=== PATIENT | male | born 1950 | race Caucasian/White ===

== ENCOUNTER → 2018-12-31 | Outpatient (CLI) | payer OTHER, MEDICARE ==
[~2018-12-31] MED LIST: REGADENOSON 0.4 MG/5 ML SYRINGE ONE
== END | disposition home or self-care (01) ==
LOC: CFH 06:38
PROVIDERS: ATTEND Internal Medicine Cardiovascular Disease
DX: I35.8 Other nonrheumatic aortic valve disorders (principal); I10 Essential (primary) hypertension; E78.5 Hyperlipidemia, unspecified; E11.9 Type 2 diabetes mellitus without complications
CPT/HCPCS: 78452; 93017; 93306; A9502; J2785

== ENCOUNTER 2019-09-23 10:01 | Outpatient (CLI) | payer OTHER, MEDICARE | END 2019-09-23 23:59 | disposition home or self-care (01) | LOC: RAD 10:01 | PROVIDERS: ATTEND Family Medicine | DX: E04.1 Nontoxic single thyroid nodule (principal); E11.65 Type 2 diabetes mellitus with hyperglycemia; M10.9 Gout, unspecified; N40.0 Benign prostatic hyperplasia without lower urinary tract symptoms | CPT/HCPCS: 10005; 88173 ==

== ENCOUNTER 2020-06-05 09:34 | Inpatient (IN) | payer OTHER, MEDICARE ==
[~2020-06-05] VITALS: Ht 175.3 cm; Wt 80.0 kg
--- NOTE | 2020-06-05 09:36 | NUR ---
PT BIB EMS FROM HOME. PER EMS RPT PTS RPTS THAT PT HAS BEEN "A LITTLE SLOW AND DISORIENTED FOR FEW DAYS" +N/V/D TODAY. FSBS = 456 ROUGHER HELPER, EMS EST PIV AND GAVE 1LITER NS ROUGHER HELPER. PT PRESENTS AWAKE, ALERT AND COOPERATIVE, FOLLOWS COMMANDS BUT SEEMS A LITTLE SLOW IN RESPONSES. NOT ORIENTED TO YEAR, MONTH, AND IS UNSURE OF MEDICATIONS. VSS NOTED. DR ARCHULETA AT BEDSIDE, ASSESSMENT REV. AND QUESTIONS ANSWERED. ORDERS REC'D. ALL MONITORS PLACE. IVF INFUSING W/O DIFFICULTY
[2020-06-05] MEDS ORDERED: SODIUM CHLORIDE 0.9% 1,000ML IVBOLUS ONE ×2 (10:00→11:30)
[2020-06-05] MEDS ORDERED: ONDANSETRON 2MG/ML, 2ML IVPush ONE (10:00)
[2020-06-05] MEDS ORDERED: IRBE300T8 PO (10:24)
[2020-06-05] MEDS ORDERED: TADA5TAB2 PO (10:24)
[2020-06-05] MEDS ORDERED: GLIM1TAB7 PO (10:24)
[2020-06-05] MEDS ORDERED: ALLO300T PO (10:24)
[2020-06-05] MEDS ORDERED: METF500T17 PO (10:24)
[2020-06-05] MEDS ORDERED: METO-93 PO (10:24)
[2020-06-05] MEDS ORDERED: FENO145T32 PO (10:24)
[2020-06-05] MEDS ORDERED: AMLO-211 PO (10:24)
[2020-06-05 10:26] LABS: PH, VENOUS 7.194 pH (7.320-7.420)
[2020-06-05 10:27] LABS: FIO2 RA %
[2020-06-05 10:32] LABS: BASOPHILS % (AUTO) 1 % (0-1); EOSINOPHILS % (AUTO) 0 % (1-7); LYMPHOCYTES % (AUTO) 13 % (22-44); MEAN CORPUSCULAR HEMOGLOBIN 30.2 pg (27.5-34.5); MEAN CORPUSCULAR HGB CONC 33.1 g/dL (33.2-36.2); MEAN PLATELET VOLUME 8.4 fL (7.4-10.4); MONOCYTES % (AUTO) 6 % (2-9); NEUTROPHILS % (AUTO) 80 % (42-75); PLATELET COUNT 204 x10^3/uL (130-400); RED BLOOD COUNT 4.84 x10^6/uL (4.38-5.82); RED CELL DISTRIBUTION WIDTH 13.6 % (9.4-14.8)
[2020-06-05 10:35] LABS: MD NO
[2020-06-05 10:41] LABS: ALKALINE PHOSPHATASE 96 U/L (45-117); BILIRUBIN,TOTAL 0.7 mg/dL (0.2-1.0); CREATININE 2.21 mg/dL (0.7-1.3); TOTAL PROTEIN 7.6 g/dL (6.4-8.2)
[2020-06-05 10:43] LABS: MICROSCOPIC INDICATED
[2020-06-05] MEDS ORDERED: ONDANSETRON 2MG/ML, 2ML ONE (10:47)
[2020-06-05 10:48] LABS: ALANINE AMINOTRANSFERASE 26 U/L (12-78); ALBUMIN 3.4 g/dL (3.4-5.0); ANION GAP 18 mmol/L (5-15); CALCIUM 9.1 mg/dL (8.5-10.1); CHLORIDE 114 mmol/L (98-107)
--- NOTE | 2020-06-05 11:02 | NUR ---
LAB RESULTS INCLUDING GLUCOSE DISCUSSED WITH DR. ARCHULETA
--- NOTE | 2020-06-05 11:05 | NUR ---
PLAN OF CARE DISCUSSED WITH DR ARCHULETA AND NEW ORDERS REC'D
[2020-06-05] MEDS ORDERED: CEFTRIAXONE PMX 1GM/50ML 50 ML IV ONE (11:30)
[2020-06-05] MEDS ORDERED: AZITHROMYCIN 500 MG in SODIUM CHLORIDE 0.9% 250 ML IV ONE (11:30)
[2020-06-05 11:38] LABS: ACETONE, SERUM Large (80mg/dL) (Negative)
--- NOTE | 2020-06-05 11:44 | NUR ---
PTS AT BEDSIDE, PT ASSESSMENT, LAB AND XRAY RESULTS, POC FOR ADMIT DISCUSSED AND QUESTINS ANSWERED. PT IS COVID R/O, VISITING RESTRICTIONS DISCUSSED. SHE AND HER LIVE IN AN AREA WHERE THEY HAVE NO PHONE COVERAGE. SHE CAN BE REACHED BY TESTING. SHE LEFT THE PTS CELL PHONE SO THAT HER , DOCTORS, AND NURSES CAN TEXT HER. PH `[phone]
[2020-06-05] MEDS ORDERED: CEFTRIAXONE PMX 1GM/50ML 50 ML ONE (11:55)
[2020-06-05] MEDS ORDERED: ACETAMINOPHEN 325 MG TABLET PO PRN (12:00)
[2020-06-05] MEDS: AZITHROMYCIN 500 MG in SODIUM CHLORIDE 0.9% 250 ML IV SCH (12:00)
[2020-06-05] MEDS ORDERED: ONDANSETRON 2MG/ML, 2ML IV PRN (12:00)
[2020-06-05] MEDS ORDERED: POLYETHYLENE GLYCOL 17 GM PACKET PO PRN (12:00)
[2020-06-05] MEDS ORDERED: BISACODYL 10 MG SUPP PR PRN (12:00)
[2020-06-05] MEDS: CEFTRIAXONE PMX 1GM/50ML 50 ML IV SCH (12:00)
[2020-06-05] MEDS ORDERED: LABETALOL 5MG/ML, 20ML IVPush PRN (12:00)
[2020-06-05] MEDS ORDERED: OXYcodone IR 5MG TABLET PO PRN (12:00)
[2020-06-05] MEDS ORDERED: SODIUM CHLORIDE 0.9% 1,000 ML IV SCH (12:00)
[2020-06-05] MEDS ORDERED: DOCUSATE 100 MG CAPSULE PO PRN (12:00)
[2020-06-05] MEDS ORDERED: ENOXAPARIN 40 MG/0.4 ML ONE (12:24)
[2020-06-05] MEDS ORDERED: THIAMINE 100MG TABLET ONE (12:25)
[2020-06-05] MEDS ORDERED: CHOLECALCIFEROL 5,000u TAB ONE (12:25)
[2020-06-05] MEDS ORDERED: ZINC SULFATE 220 MG CAPSULE ONE (12:25)
[2020-06-05] MEDS: ENOXAPARIN 40 MG/0.4 ML SQ SCH (12:29)
[2020-06-05] MEDS: CHOLECALCIFEROL 5,000u TAB PO SCH (12:30)
[2020-06-05] MEDS: THIAMINE 100MG TABLET PO SCH (12:30)
[2020-06-05] MEDS: ZINC SULFATE 220 MG CAPSULE PO SCH (12:30)
[2020-06-05 12:35] LABS: ALANINE AMINOTRANSFERASE 22 U/L (12-78); ALBUMIN 3.1 g/dL (3.4-5.0); CALCIUM 8.7 mg/dL (8.5-10.1)
[2020-06-05 12:46] LABS: ALKALINE PHOSPHATASE 88 U/L (45-117); BILIRUBIN,TOTAL 0.6 mg/dL (0.2-1.0); TOTAL PROTEIN 7.1 g/dL (6.4-8.2)
[2020-06-05 12:47] LABS: ANION GAP 18 mmol/L (5-15); CHLORIDE 117 mmol/L (98-107)
[2020-06-05] MEDS: REGULAR INSULIN 100 UNITS in SODIUM CHLORIDE 0.9% 99 ML IV PRN ×2 (13:29→16:35)
--- NOTE | 2020-06-05 13:31 | NUR ---
INSULIN GTT AND MAINTENANCE FLUIDS STARTED. PT CONTINUE TO HAVE FREQUENT DRY COUGHING, DENIES PAIN, VSS. CALL LIGHT W/I REACH. MEAL TRAY ORDERED.
--- NOTE | 2020-06-05 14:30 | NUR ---
SPOKE WITH PTS AND UPDATED HER REGARDING POC. QUESTIONS ANSWERED.
--- NOTE | 2020-06-05 14:38 | NUR ---
PT GOT OOB UNASSISTED TO USE COMMODE. BREAK RN CAME TO ROOM AND HELPED PT GET ONTO THE COMMODE. HE HAD PULLED OUT ONE OF HIS PIV'S. TIP FOUND INTACT ON THE FLOOR. PT +DIARRHEA. RTD TO BED WITH RN STANDBY ASSIST. IVF RESTARTED THROUGH THE REMAINING IV AND INFUSING W/O DIFFICULTY. DR HARRIS AT BEDSIDE, PT ASSESSMENT, WORSENING CONFUSION DISCUSSED.
[2020-06-05 15:14] LABS: CLOSTRIDIUM DIFFICILE ANTIGEN NEGATIVE; CLOSTRIDIUM DIFFICILE TOXIN NEGATIVE (Negative)
--- NOTE | 2020-06-05 15:37 | NUR ---
PT CONFUSION AND MULTIPLE ATTEMPTS TO GET OUT OF BED DISCUSSED WITH LONG LINE TEAMSTERTayo DEAN REQUESTED.
[2020-06-05 16:02] LABS: ANION GAP 14 mmol/L (5-15); CALCIUM 8.5 mg/dL (8.5-10.1); CHLORIDE 120 mmol/L (98-107); CREATININE 1.87 mg/dL (0.7-1.3)
[2020-06-05 16:16] VITALS: BP 142/69
[2020-06-05] MEDS: ASCORBIC ACID 500 MG TABLET PO SCH ×2 (17:00→20:22)
--- NOTE | 2020-06-05 17:03 | NUR ---
SPOKE AT LENGTH WITH PTS DAUGHTER, VALERIE. VALERIE POC DISCUSSED AND QUESTIONS ANSWERED. VALERIE STATED THAT SHE WOULD SEND A TEXT TO PTS EXPLAINING THAT I WAS UNABLE TO ACCESS PTS PHONE TO TEXT HER BECUASE PT COULD NOT REMEMBER THE PASSWORD.
[2020-06-05] MEDS: D5%-0.45NACL+KCL 20MEQ 1,000 ML IV SCH ×2 (21:00→21:43)
[2020-06-05 21:22] LABS: ANION GAP 8 mmol/L (5-15); CALCIUM 8.5 mg/dL (8.5-10.1); CHLORIDE 126 mmol/L (98-107); CREATININE 1.74 mg/dL (0.7-1.3)
[2020-06-05] MEDS: POTASSIUM CHLORIDE 20 MEQ in SODIUM CHLORIDE 0.45% 1,000 ML IV SCH (22:00)
[2020-06-05] MEDS ORDERED: POTASSIUM CHLORIDE 20 MEQ TAB.ER.PRT PO ONE (22:00)
[2020-06-06 01:10] LABS: ANION GAP 6 mmol/L (5-15); CALCIUM 8.5 mg/dL (8.5-10.1); CHLORIDE 129 mmol/L (98-107); CREATININE 1.77 mg/dL (0.7-1.3)
[2020-06-06 04:00] VITALS: BP 142/82
[2020-06-06] MEDS: POTASSIUM CHLORIDE 20 MEQ in SODIUM CHLORIDE 0.45% 1,000 ML IV SCH (04:33)
[2020-06-06 06:52] LABS: ANION GAP 3 mmol/L (5-15); CALCIUM 8.7 mg/dL (8.5-10.1); CHLORIDE 130 mmol/L (98-107); CREATININE 1.63 mg/dL (0.7-1.3)
[2020-06-06] MEDS: METOPROLOL SUCCINATE 50 MG TAB.ER.24H PO SCH (07:47)
[2020-06-06] MEDS: THIAMINE 100MG TABLET PO SCH (07:47)
[2020-06-06] MEDS: ASCORBIC ACID 500 MG TABLET PO SCH ×2 (07:47→16:43)
[2020-06-06] MEDS: ALLOPURINOL 100 MG TABLET PO SCH (07:48)
[2020-06-06] MEDS: ZINC SULFATE 220 MG CAPSULE PO SCH (07:48)
[2020-06-06] MEDS: AMLODIPINE 10 MG TAB PO SCH (07:48)
[2020-06-06] MEDS: CHOLECALCIFEROL 5,000u TAB PO SCH (07:48)
[2020-06-06] MEDS: FENOFIBRATE 145 MG TABLET PO SCH (07:49)
[2020-06-06] MEDS: D5%-0.45NACL+KCL 20MEQ 1,000 ML IV SCH (08:51)
[2020-06-06 08:56] LABS: BASOPHILS % (AUTO) 1 % (0-1); EOSINOPHILS % (AUTO) 0 % (1-7); LYMPHOCYTES % (AUTO) 11 % (22-44); MEAN CORPUSCULAR HEMOGLOBIN 30.4 pg (27.5-34.5); MONOCYTES % (AUTO) 6 % (2-9); NEUTROPHILS % (AUTO) 83 % (42-75); PLATELET COUNT 211 x10^3/uL (130-400); RED BLOOD COUNT 4.45 x10^6/uL (4.38-5.82); RED CELL DISTRIBUTION WIDTH 13.1 % (9.4-14.8)
[2020-06-06 09:03] LABS: MD NO
[2020-06-06 10:58] LABS: ANION GAP 2 mmol/L (5-15); CALCIUM 8.8 mg/dL (8.5-10.1); CHLORIDE 130 mmol/L (98-107); CREATININE 1.57 mg/dL (0.7-1.3)
[2020-06-06] MEDS: AZITHROMYCIN 500 MG in SODIUM CHLORIDE 0.9% 250 ML IV SCH (11:45)
[2020-06-06] MEDS: CEFTRIAXONE PMX 1GM/50ML 50 ML IV SCH (11:45)
[2020-06-06] MEDS: ENOXAPARIN 40 MG/0.4 ML SQ SCH (11:45)
[2020-06-06] MEDS ORDERED: SODIUM CHLORIDE 0.9% 1,000 ML IV SCH (12:00)
[2020-06-06] MEDS: POTASSIUM CHLORIDE 20 MEQ in DEXTROSE 5% 1,000 ML IV SCH ×2 (12:23→20:58)
[2020-06-06] MEDS: REGULAR INSULIN 100 UNITS in SODIUM CHLORIDE 0.9% 99 ML IV PRN (12:39)
[2020-06-06 15:38] LABS: ANION GAP 4 mmol/L (5-15); CALCIUM 8.6 mg/dL (8.5-10.1); CHLORIDE 129 mmol/L (98-107); CREATININE 1.32 mg/dL (0.7-1.3)
[2020-06-06 18:08] LABS: ANION GAP 5 mmol/L (5-15); CALCIUM 8.4 mg/dL (8.5-10.1); CHLORIDE 127 mmol/L (98-107); CREATININE 1.28 mg/dL (0.7-1.3)
[2020-06-06 22:57] LABS: ANION GAP 5 mmol/L (5-15); CALCIUM 8.5 mg/dL (8.5-10.1); CHLORIDE 126 mmol/L (98-107)
[2020-06-07 03:00] VITALS: BP 153/85
[2020-06-07 03:04] LABS: BASOPHILS % (AUTO) 0 % (0-1); EOSINOPHILS % (AUTO) 0 % (1-7); LYMPHOCYTES % (AUTO) 12 % (22-44); MEAN CORPUSCULAR HEMOGLOBIN 30.2 pg (27.5-34.5); MEAN CORPUSCULAR HGB CONC 34.2 g/dL (33.2-36.2); MEAN PLATELET VOLUME 7.7 fL (7.4-10.4); MONOCYTES % (AUTO) 4 % (2-9); NEUTROPHILS % (AUTO) 84 % (42-75); PLATELET COUNT 192 x10^3/uL (130-400); RED BLOOD COUNT 4.34 x10^6/uL (4.38-5.82); RED CELL DISTRIBUTION WIDTH 13.4 % (9.4-14.8)
[2020-06-07 03:07] LABS: ANION GAP 5 mmol/L (5-15); CALCIUM 8.4 mg/dL (8.5-10.1); CHLORIDE 124 mmol/L (98-107); CREATININE 1.17 mg/dL (0.7-1.3); MD NO
[2020-06-07] MEDS: POTASSIUM CHLORIDE 20 MEQ in DEXTROSE 5% 1,000 ML IV SCH ×2 (05:10→17:30)
[2020-06-07] MEDS: AMLODIPINE 10 MG TAB PO SCH (08:17)
[2020-06-07] MEDS: FENOFIBRATE 145 MG TABLET PO SCH (08:17)
[2020-06-07] MEDS: ASCORBIC ACID 500 MG TABLET PO SCH ×2 (08:17→16:36)
[2020-06-07] MEDS: THIAMINE 100MG TABLET PO SCH (08:17)
[2020-06-07] MEDS: ZINC SULFATE 220 MG CAPSULE PO SCH (08:18)
[2020-06-07] MEDS: CHOLECALCIFEROL 5,000u TAB PO SCH (08:18)
[2020-06-07] MEDS: ALLOPURINOL 100 MG TABLET PO SCH (08:18)
[2020-06-07] MEDS: METOPROLOL SUCCINATE 50 MG TAB.ER.24H PO SCH (08:18)
[2020-06-07 10:19] LABS: ANION GAP 7 mmol/L (5-15); CALCIUM 8.8 mg/dL (8.5-10.1); CHLORIDE 122 mmol/L (98-107); CREATININE 1.25 mg/dL (0.7-1.3)
[2020-06-07] MEDS: ENOXAPARIN 40 MG/0.4 ML SQ SCH (11:23)
[2020-06-07] MEDS: CEFTRIAXONE PMX 1GM/50ML 50 ML IV SCH (11:23)
[2020-06-07] MEDS: AZITHROMYCIN 500 MG in SODIUM CHLORIDE 0.9% 250 ML IV SCH (12:28)
[2020-06-07] MEDS ORDERED: MIDAZOLAM 1 MG/ML, 5ML ONE (12:34)
[2020-06-07] MEDS ORDERED: PROPOFOL 10 MG/ML, 100ML IV ONE (12:34)
[2020-06-07] MEDS ORDERED: ETOMIDATE 20 MG/10 ML ONE (12:34)
[2020-06-07 13:48] LABS: ANION GAP 4 mmol/L (5-15); CALCIUM 8.4 mg/dL (8.5-10.1); CHLORIDE 122 mmol/L (98-107); CREATININE 1.19 mg/dL (0.7-1.3)
[2020-06-07] MEDS: DOXYCYCLINE 100 MG in DEXTROSE 5% 250 ML IV SCH (16:32)
[2020-06-07] MEDS ORDERED: PHARMACY INSTRUCTION MC ONE (17:00)
[2020-06-07] MEDS: DEXAMETHASONE 4 MG/ML, 1ML IVPush SCH (17:23)
[2020-06-07] MEDS ORDERED: REMDESIVIR 200 MG in SODIUM CHLORIDE 0.9% 250 ML IVPB ONE (17:30)
[2020-06-08] MEDS: POTASSIUM CHLORIDE 20 MEQ in DEXTROSE 5% 1,000 ML IV SCH ×2 (02:11→11:28)
[2020-06-08 04:00] VITALS: BP 108/65
[2020-06-08] MEDS: DOXYCYCLINE 100 MG in DEXTROSE 5% 250 ML IV SCH ×2 (04:31→17:11)
[2020-06-08 05:15] LABS: BASOPHILS % (AUTO) 0 % (0-1); EOSINOPHILS % (AUTO) 0 % (1-7); HCT (SEDRATE) 37.7 % (39.2-51.8); LYMPHOCYTES % (AUTO) 10 % (22-44); MEAN CORPUSCULAR HEMOGLOBIN 30.5 pg (27.5-34.5); MEAN CORPUSCULAR HGB CONC 34.7 g/dL (33.2-36.2); MEAN PLATELET VOLUME 7.8 fL (7.4-10.4); MONOCYTES % (AUTO) 7 % (2-9); NEUTROPHILS % (AUTO) 82 % (42-75); PLATELET COUNT 219 x10^3/uL (130-400); RED BLOOD COUNT 4.17 x10^6/uL (4.38-5.82); RED CELL DISTRIBUTION WIDTH 13.4 % (9.4-14.8)
[2020-06-08 05:22] LABS: MD NO
[2020-06-08 05:29] LABS: D-DIMER 0.37 ug/mlFEU (0.00-0.52); INTERNATIONAL NORMALIZED RATIO 1.08 (0.93-1.1); PROTHROMBIN TIME 11.4 Seconds (9.6-11.5)
[2020-06-08 05:41] LABS: ALANINE AMINOTRANSFERASE 19 U/L (12-78); ANION GAP 5 mmol/L (5-15); BILIRUBIN,TOTAL 0.5 mg/dL (0.2-1.0); CALCIUM 8.5 mg/dL (8.5-10.1); CHLORIDE 117 mmol/L (98-107); CREATININE 1.11 mg/dL (0.7-1.3)
[2020-06-08 05:42] LABS: ALBUMIN 2.6 g/dL (3.4-5.0); ALKALINE PHOSPHATASE 81 U/L (45-117); CREATINE KINASE, TOTAL 78 U/L (39-308); TOTAL PROTEIN 6.9 g/dL (6.4-8.2); TROPONIN I < 0.015 ng/mL (0.000-0.045)
[2020-06-08] MEDS: ZINC SULFATE 220 MG CAPSULE PO SCH (08:18)
[2020-06-08] MEDS: CHOLECALCIFEROL 5,000u TAB PO SCH (08:19)
[2020-06-08] MEDS: THIAMINE 100MG TABLET PO SCH (08:19)
[2020-06-08] MEDS: ALLOPURINOL 100 MG TABLET PO SCH (08:19)
[2020-06-08] MEDS: METOPROLOL SUCCINATE 50 MG TAB.ER.24H PO SCH (08:19)
[2020-06-08] MEDS: AMLODIPINE 10 MG TAB PO SCH (08:19)
[2020-06-08] MEDS: ASCORBIC ACID 500 MG TABLET PO SCH ×2 (08:19→16:59)
[2020-06-08] MEDS: FENOFIBRATE 145 MG TABLET PO SCH (08:25)
[2020-06-08] MEDS: CEFTRIAXONE PMX 1GM/50ML 50 ML IV SCH (11:28)
[2020-06-08] MEDS: ENOXAPARIN 40 MG/0.4 ML SQ SCH (11:29)
[2020-06-08] MEDS ORDERED: REGULAR INSULIN 100 UNITS in SODIUM CHLORIDE 0.9% 99 ML IV PRN (12:00)
[2020-06-08] MEDS ORDERED: GLUCAGON 1 MG IM PRN (14:00)
[2020-06-08] MEDS ORDERED: INSULIN GLARGINE 100 UNITS/ML, PEN SQ-INSULIN ONE (14:00)
[2020-06-08] MEDS ORDERED: DEXTROSE 4 GM TAB.CHEW PO PRN (14:00)
[2020-06-08] MEDS ORDERED: DEXTROSE 50%, 50ML SYRINGE IVPush PRN (14:00)
[2020-06-08] MEDS ORDERED: POTASSIUM CHLORIDE 20 MEQ TAB.ER.PRT PO ONE (14:00)
[2020-06-08] MEDS: POTASSIUM ACID PHOSPHATE 500 MG TABLET.SOL PO SCH ×2 (14:42→21:00)
[2020-06-08] MEDS: DEXAMETHASONE 4 MG/ML, 1ML IVPush SCH (16:59)
[2020-06-08] MEDS: INSULIN LISPRO 100 UNITS/ML, PEN SQ-INSULIN SCH ×2 (17:09→21:35)
[2020-06-08] MEDS: REMDESIVIR 100 MG in SODIUM CHLORIDE 0.9% 250 ML IVPB SCH (17:30)
[2020-06-08 20:46] VITALS: BP 120/75
[2020-06-08] MEDS: SODIUM CHLORIDE FLUSH 10ML SYR IVF SCH (21:34)
[2020-06-08] MEDS: INSULIN GLARGINE 100 UNITS/ML, PEN SQ-INSULIN SCH (21:35)
[2020-06-09 01:04] VITALS: BP 135/77
[2020-06-09] MEDS: POTASSIUM ACID PHOSPHATE 500 MG TABLET.SOL PO SCH ×2 (03:21→08:34)
[2020-06-09] MEDS: DOXYCYCLINE 100 MG in DEXTROSE 5% 250 ML IV SCH ×2 (05:15→16:58)
[2020-06-09 05:55] LABS: BASOPHILS % (AUTO) 0 % (0-1); EOSINOPHILS % (AUTO) 0 % (1-7); LYMPHOCYTES % (AUTO) 12 % (22-44); MEAN CORPUSCULAR HEMOGLOBIN 30.1 pg (27.5-34.5); MEAN CORPUSCULAR HGB CONC 34.7 g/dL (33.2-36.2); MEAN PLATELET VOLUME 8.1 fL (7.4-10.4); MONOCYTES % (AUTO) 6 % (2-9); NEUTROPHILS % (AUTO) 82 % (42-75); PLATELET COUNT 247 x10^3/uL (130-400); RED BLOOD COUNT 4.14 x10^6/uL (4.38-5.82); RED CELL DISTRIBUTION WIDTH 13.3 % (9.4-14.8)
[2020-06-09 06:00] LABS: MD NO
[2020-06-09 06:02] LABS: ANION GAP 5 mmol/L (5-15); CALCIUM 8.4 mg/dL (8.5-10.1); CHLORIDE 111 mmol/L (98-107); CREATININE 1.15 mg/dL (0.7-1.3)
[2020-06-09 06:30] VITALS: BP 133/70
[2020-06-09] MEDS: INSULIN GLARGINE 100 UNITS/ML, PEN SQ-INSULIN SCH ×2 (08:24→20:21)
[2020-06-09] MEDS: INSULIN LISPRO 100 UNITS/ML, PEN SQ-INSULIN SCH ×4 (08:25→20:21)
[2020-06-09] MEDS: ALLOPURINOL 100 MG TABLET PO SCH (08:33)
[2020-06-09] MEDS: ZINC SULFATE 220 MG CAPSULE PO SCH (08:33)
[2020-06-09] MEDS: THIAMINE 100MG TABLET PO SCH (08:33)
[2020-06-09] MEDS: FENOFIBRATE 145 MG TABLET PO SCH (08:33)
[2020-06-09] MEDS: METOPROLOL SUCCINATE 50 MG TAB.ER.24H PO SCH (08:33)
[2020-06-09] MEDS: ASCORBIC ACID 500 MG TABLET PO SCH ×3 (08:34→16:56)
[2020-06-09] MEDS: AMLODIPINE 10 MG TAB PO SCH (08:34)
[2020-06-09] MEDS: CHOLECALCIFEROL 5,000u TAB PO SCH (08:35)
[2020-06-09] MEDS: SODIUM CHLORIDE FLUSH 10ML SYR IVF SCH ×2 (09:00→20:21)
[2020-06-09 09:52] LABS: ALANINE AMINOTRANSFERASE 24 U/L (12-78); ALBUMIN 2.3 g/dL (3.4-5.0); ANION GAP 8 mmol/L (5-15); CALCIUM 8.2 mg/dL (8.5-10.1); CHLORIDE 112 mmol/L (98-107); CREATININE 1.25 mg/dL (0.7-1.3)
[2020-06-09 09:54] LABS: ALKALINE PHOSPHATASE 82 U/L (45-117); BILIRUBIN,TOTAL 0.5 mg/dL (0.2-1.0)
[2020-06-09] MEDS: ENOXAPARIN 40 MG/0.4 ML SQ SCH (12:00)
[2020-06-09] MEDS: CEFTRIAXONE PMX 1GM/50ML 50 ML IV SCH (12:09)
[2020-06-09 13:21] VITALS: BP 105/53
[2020-06-09] MEDS: DEXAMETHASONE 4 MG/ML, 1ML IVPush SCH (17:03)
[2020-06-09] MEDS: REMDESIVIR 100 MG in SODIUM CHLORIDE 0.9% 250 ML IVPB SCH (18:20)
[2020-06-09 19:28] VITALS: BP 125/70
[2020-06-09] MEDS: GUAIFENESIN/DM 200-20MG, 10ML UDC PO PRN (22:28)
[2020-06-10 02:13] VITALS: BP 137/74
[2020-06-10] MEDS: DOXYCYCLINE 100 MG in DEXTROSE 5% 250 ML IV SCH (05:04)
[2020-06-10] MEDS: INSULIN GLARGINE 100 UNITS/ML, PEN SQ-INSULIN SCH ×2 (07:52→21:00)
[2020-06-10] MEDS: INSULIN LISPRO 100 UNITS/ML, PEN SQ-INSULIN SCH ×4 (07:53→20:53)
[2020-06-10 07:57] LABS: ALBUMIN 2.6 g/dL (3.4-5.0); ANION GAP 7 mmol/L (5-15); CALCIUM 8.8 mg/dL (8.5-10.1); CHLORIDE 110 mmol/L (98-107)
[2020-06-10 08:02] LABS: ALANINE AMINOTRANSFERASE 29 U/L (12-78); ALKALINE PHOSPHATASE 104 U/L (45-117); BILIRUBIN,TOTAL 0.9 mg/dL (0.2-1.0); CREATININE 1.22 mg/dL (0.7-1.3); TOTAL PROTEIN 6.6 g/dL (6.4-8.2)
[2020-06-10 08:58] VITALS: BP 142/68
[2020-06-10] MEDS: AMLODIPINE 10 MG TAB PO SCH (10:37)
[2020-06-10] MEDS: ZINC SULFATE 220 MG CAPSULE PO SCH (10:37)
[2020-06-10] MEDS: ALLOPURINOL 100 MG TABLET PO SCH (10:37)
[2020-06-10] MEDS: FENOFIBRATE 145 MG TABLET PO SCH (10:37)
[2020-06-10] MEDS: CHOLECALCIFEROL 5,000u TAB PO SCH (10:37)
[2020-06-10] MEDS: THIAMINE 100MG TABLET PO SCH (10:37)
[2020-06-10] MEDS: SODIUM CHLORIDE FLUSH 10ML SYR IVF SCH ×2 (10:38→20:52)
[2020-06-10] MEDS: ASCORBIC ACID 500 MG TABLET PO SCH ×3 (10:38→17:43)
[2020-06-10] MEDS: METOPROLOL SUCCINATE 50 MG TAB.ER.24H PO SCH (10:39)
[2020-06-10] MEDS: ENOXAPARIN 40 MG/0.4 ML SQ SCH (12:34)
[2020-06-10 14:42] VITALS: BP 116/72
[2020-06-10] MEDS: DEXAMETHASONE 4 MG/ML, 1ML IVPush SCH ×2 (17:43→18:53)
[2020-06-10] MEDS: REMDESIVIR 100 MG in SODIUM CHLORIDE 0.9% 250 ML IVPB SCH ×2 (17:44→18:52)
[2020-06-10 20:21] VITALS: BP 142/75
[2020-06-10] MEDS: GUAIFENESIN/DM 200-20MG, 10ML UDC PO PRN (21:33)
[2020-06-11 01:06] VITALS: BP 134/78
[2020-06-11 06:24] LABS: BASOPHILS % (AUTO) 0 % (0-1); EOSINOPHILS % (AUTO) 0 % (1-7); LYMPHOCYTES % (AUTO) 9 % (22-44); MEAN CORPUSCULAR HEMOGLOBIN 30.4 pg (27.5-34.5); MEAN CORPUSCULAR HGB CONC 35.2 g/dL (33.2-36.2); MEAN PLATELET VOLUME 7.4 fL (7.4-10.4); MONOCYTES % (AUTO) 8 % (2-9); NEUTROPHILS % (AUTO) 83 % (42-75); PLATELET COUNT 386 x10^3/uL (130-400); RED BLOOD COUNT 3.85 x10^6/uL (4.38-5.82); RED CELL DISTRIBUTION WIDTH 13.7 % (9.4-14.8)
[2020-06-11 06:32] LABS: ANION GAP 9 mmol/L (5-15); CALCIUM 8.3 mg/dL (8.5-10.1); CHLORIDE 113 mmol/L (98-107); CREATININE 1.04 mg/dL (0.7-1.3)
[2020-06-11 06:34] LABS: MD NO
[2020-06-11 07:11] VITALS: BP 118/71
[2020-06-11] MEDS: AMLODIPINE 10 MG TAB PO SCH (07:36)
[2020-06-11] MEDS: ALLOPURINOL 100 MG TABLET PO SCH (07:36)
[2020-06-11] MEDS: THIAMINE 100MG TABLET PO SCH (07:36)
[2020-06-11] MEDS: ASCORBIC ACID 500 MG TABLET PO SCH ×2 (07:36→12:08)
[2020-06-11] MEDS: ZINC SULFATE 220 MG CAPSULE PO SCH (07:36)
[2020-06-11] MEDS: CHOLECALCIFEROL 5,000u TAB PO SCH (07:36)
[2020-06-11] MEDS: METOPROLOL SUCCINATE 50 MG TAB.ER.24H PO SCH (07:37)
[2020-06-11] MEDS: SODIUM CHLORIDE FLUSH 10ML SYR IVF SCH (07:37)
[2020-06-11] MEDS: FENOFIBRATE 145 MG TABLET PO SCH (07:37)
[2020-06-11] MEDS: INSULIN GLARGINE 100 UNITS/ML, PEN SQ-INSULIN SCH (07:46)
[2020-06-11] MEDS: INSULIN LISPRO 100 UNITS/ML, PEN SQ-INSULIN SCH ×2 (07:46→12:08)
[2020-06-11] MEDS ORDERED: POTASSIUM CHLORIDE 20 MEQ TAB.ER.PRT PO ONE (09:30)
[2020-06-11] MEDS: ENOXAPARIN 40 MG/0.4 ML SQ SCH (12:00)
== END 2020-06-11 12:31 | disposition home or self-care (01) | DRG 177 ==
LOC: ED 11:59 → EDIP 12:00 → ED 12:00 → CCU 16:07 → ICU 21:04 → 3N 06-08 18:04
PROVIDERS: ADMIT Internal Medicine; ATTEND Internal Medicine Infectious Disease
DX: U07.1 COVID-19 (principal); E11.10 Type 2 diabetes mellitus with ketoacidosis without coma; G93.41 Metabolic encephalopathy; N17.0 Acute kidney failure with tubular necrosis; J12.89 Other viral pneumonia; E87.0 Hyperosmolality and hypernatremia; D64.9 Anemia, unspecified; E78.5 Hyperlipidemia, unspecified; E87.6 Hypokalemia; I10 Essential (primary) hypertension; M10.9 Gout, unspecified; Z66 Do not resuscitate; E83.39 Other disorders of phosphorus metabolism
CPT/HCPCS: 36415; 70450; 71045; 80048; 80053; 81001; 82010; 82550; 82728; 82803; 82962; 83036; 83605; 83615; 83690; 83735; 83930; 84100; 84145; 84439; 84443; 84484; 85025; 85379; 85384; 85610; 85651; 86140; 87040; 87081; 87324; 89055; 93005; 96361; 96365; 96375; 99291; G0378; J0456; J0696; J1100; J1650; J1815; J2250; J2405; J2704; J3480; J7060; J7070; J7030; J7050; U0003